=== PATIENT | male | born 1960 | race Caucasian/White ===

== ENCOUNTER 2017-09-14 08:32 | Day surgery (SDC) | payer OTHER ==
[~2017-09-14 08:32] MED LIST: Buffered Lidocaine 0.9% SYRIN* 5 ML/SYR SYRINGE INTRADERM ONE; Sodium Citrate/Citric Acid* 15 ML UDC PO ONE; ceFAZolin 2 GM PREMIX (*) 2 GM/50 ML BAG IVPB ONE
[2017-09-14] MEDS ORDERED: Sodium Citrate/Citric Acid* 15 ML UDC ONE (08:33)
[2017-09-14] MEDS ORDERED: Bupivacaine 0.25% SDV* 30 ML ONE (10:18)
[2017-09-14] MEDS ORDERED: Propofol* 10 MG/ML 20 ML BTL IV PUSH ONE (10:29)
[2017-09-14] MEDS ORDERED: Dexamethasone IV* 4 MG/ML 1 ML (4 MG) ONE (10:29)
[2017-09-14] MEDS ORDERED: Lidocaine 2% PF * 5 ML VIAL ONE (10:29)
[2017-09-14] MEDS ORDERED: Ketorolac INJ* 30 MG/ML 1 ML VIAL ONE ×2 (10:29→12:28)
[2017-09-14] MEDS ORDERED: Cisatracurium* 2 MG/ML MDV 5 ML ONE (10:29)
[2017-09-14] MEDS ORDERED: Midazolam* 1 MG/ML 2 ML VIAL (2 MG) ONE (10:30)
[2017-09-14] MEDS ORDERED: fentaNYL* 50 MCG/ML 2 ML VIAL (100 MCG VIAL) ONE ×2 (10:30→12:02)
[2017-09-14] MEDS ORDERED: Ondansetron INJ* 2 MG/ML VIAL IV PRN (11:06)
[2017-09-14] MEDS ORDERED: fentaNYL* 50 MCG/ML 2 ML VIAL (100 MCG VIAL) IV PRN (11:06)
[2017-09-14] MEDS ORDERED: oxyCODONE/Acetamin 5/325 MG* TAB PO PRN (12:55)
[2017-09-14] MEDS ORDERED: oxyCODONE/Acetamin 5/325 MG* TAB ONE (13:55)
[2017-09-14 16:05] VITALS: BP 128/70
--- NOTE | 2017-09-15 13:02 | OP ---
DATE OF OPERATION: 09/14/17 [facility] DATE OF : 64 SURGEON: Alberto Hanley MD. ELECTRICAL CONSTRUCTION PROJECT MANAGER: BRENDA Mackay. ANESTHESIOLOGIST: Dr. Rose. ANESTHESIA: General with local. PRE-OP DIAGNOSIS: Left inguinal hernia. POST-OP DIAGNOSIS: Left indirect inguinal hernia. OPERATIVE PROCEDURE: Extraperitoneal laparoscopic repair with a flat sheet ProGrip laparoscopic self-fixating mesh. ESTIMATED BLOOD LOSS: Minimal. WOUND CLASSIFICATION: 1. COMPLICATIONS: None. SPECIMENS: None. DRAINS: None. BRIEF HISTORY: Mr. Vitaliy Naqvi is a 57-year-old gentleman with a longstanding left inguinal hernia increasing size causing discomfort during physical activity is now to undergo an elective repair. DESCRIPTION OF PROCEDURE: Written and informed consent was obtained, the left groin was marked with indelible ink and preoperative antibiotics were administered. The patient was taken to the operating room, placed in the supine position. Sequential compression devices and a warming blanket were applied. General anesthesia was administered. A Abrams catheter was inserted. The abdomen and both groins were prepped and draped in the usual sterile fashion. A time-out verification was completed. Initially, a small transverse incision was made over the midline and just of the midline just below the umbilicus. This was carried down to the midline and the right rectus sheath was exposed and divided transversely exposing the underlying rectus muscle. The muscle was retracted laterally to expose the posterior sheath and the space inferiorly was then developed using initially a Daina and then finger digitally, in preparation for placement of the Spacemaker balloon. Next, the Spacemaker balloon was inserted into the space and carefully, but easily was passed down inferiorly to the pubic tubercle at the midline, which was confirmed by the tactile feel. Next, the 10-mm scope was inserted into the balloon and the balloon was inflated with almost 20 pumps of the inflator to develop the extraperitoneal space. The pressure was held in the right side of the abdomen in an attempt to more selectively insufflate and develop the left extraperitoneal space, which was mainly successful. Once this was done, the balloon was then removed and a 12-mm blunt port was inserted in the extraperitoneal space, was insufflated to 12 mmHg, and the patient was placed in Trendelenburg position. Two 5-mm ports were placed in the midline, the first about 3 fingerbreadths below the initial blunt port and the second one another 3 fingerbreadths below our first 5-mm port in the midline under direct vision. Dissection commenced initially by identifying the midline pubic tubercle and the timothy's ligament on the left side without difficulty. There was some adventitial tissue that was taken down bluntly to expose this. The anterior abdominal wall was identified and thus we were also able to identify the epigastric vessels as they entered the anterior abdominal wall in their usual position. More laterally I dissected and opened some adventitial tissue to identify the anterior abdominal wall on the left and we dissected out all the way out to the iliac crest. Once we identified these significant landmarks, I identified the peritoneal reflection laterally and we followed this from the lateral to medial direction into the internal ring, where there was an indirect peritoneal hernia sac in the expected position for an indirect inguinal hernia. I was able to separate this out from the surrounding cord structure using blunt dissection and some tension and thus I was able to reduce the hernia sac with care to prevent tearing the peritoneum. The spermatic cord and vas deferens were identified in their usual position and these were protected from injury throughout. Once this was reduced I was able to follow the peritoneal reflection medially down in the pelvis to be able to identify its location. There appeared to be no evidence of a direct inguinal hernia. Once this dissection was complete, a ProGrip laparoscopic self-fixating mesh was moistened with saline and its corners were trimmed slightly. This was rolled up in a cigar type configuration and passed into the space through the 12 mm blunt port. The mesh was then unrolled and was positioned carefully along the pubic tubercle and Timothy's ligament medially with generous coverage of both direct and indirect spaces especially onto the anterior abdominal wall. Care was also taken to identify the peritoneal reflection along the retroperitoneum and I assured myself this was proximal the inferior border of the mesh. The mesh extended almost out towards the iliac crest and had some generous overlap at the midline as well. Once this was complete, I was comfortable with its position. No tacks were placed. Hemostasis was assured. The extraperitoneal space was then desufflated under direct vision holding the mesh in position with 2 ports. Once this was complete, all ports were removed under direct vision of the camera. The anterior rectus sheath was closed with interrupted 0 Polysorb suture. The skin at all 3 incisions was approximated with subcuticular 4-0 Polysorb suture. Steri-Strips were applied. The patient tolerated the procedure well and was taken to the recovery room in stable condition. [id number]/[facility] #: [id number]
== END 2017-09-14 14:30 | disposition home or self-care (01) ==
LOC: OR 08:32
PROVIDERS: ATTEND Surgery
DX: K40.90 Unilateral inguinal hernia, without obstruction or gangrene, not specified as recurrent (principal); Z87.891 Personal history of nicotine dependence; I49.3 Ventricular premature depolarization; J44.9 Chronic obstructive pulmonary disease, unspecified; G25.81 Restless legs syndrome; G47.9 Sleep disorder, unspecified
CPT/HCPCS: A9270-GY; J0690; J1100; J1885; J2250; J2704; J3010

== ENCOUNTER 2018-07-12 18:19 | Emergency (ER) | payer OTHER ==
[2018-07-12 20:21] VITALS: BP 129/85
[2018-07-12] MEDS ORDERED: Lidocain 1% EPI 1:100,000 * 30 ML MDV INJ ONE (20:34)
--- NOTE | 2018-07-12 20:37 | UC ---
Laceration HPI - HPI Summary HPI Summary: A 58 y/o male presents to [facility] c/o laceration near right eyebrow. According to the patient, he was trimming with lopping sheers when the device broke off which led to the sheer hitting him in the head causing an impact cut. The incident occurred around 1800. He denies any bleeding from his eyes, ears, nose or throat. He did bandage the cut, but did not clean the area first. He additionally denies any headache or vision changes. States tdap utd as reviews at annual physical. little discomfort. No everyday medications. Patient took no medications today. SHx of no ETOH, no cigaretts, but had marijuana today post -accident. Pt medications reviewed this visit. - History Of Current Complaint Chief Complaint: UCLaceration Stated Complaint: FACIAL LAC Time Seen by Provider: 07/12/18 20:29 Hx Obtained From: Patient Laceration Location: Head - Above right eyebrow Mechanism Of Injury: Sharp Trauma Onset/Duration: Sudden Onset, Still Present Pain Intensity: 0 Pain Scale Used: 0-10 Numeric Aggravating Factors: Nothing - Allergies/Home Medications Allergies/Adverse Reactions: Allergies Allergy/AdvReac Type Severity Reaction Status Date / Time No Known Allergies Allergy Verified 07/12/18 20:21 PMH/Surg Hx/FS Hx/Imm Hx Endocrine History: Diabetes - NEGATIVE Cardiovascular History: Hypertension - NEGATIVE - Surgical History Surgical History: Yes Surgery Procedure, Year, and Place: HERNIA REPAIR 08/2017 - Family History Known Family History: Positive: Other - NON-CONTRIBUTORY. - Social History Occupation: Employed Full-time Lives: With Family Alcohol Use: None Substance Use Type: Marijuana Substance Use Comment - Amount & Last Used: daily Smoking Status (MU): Former Smoker Amount Used/How Often: 1/2 pack a day for 27 years When Did the Patient Quit Smoking/Using Tobacco: 2006 - Immunization History Most Recent Tetanus Shot: THINKS UTD Review of Systems Constitutional: Negative Skin: Other - Laceration above right eyebrow Eyes: Negative ENT: Negative Respiratory: Negative Cardiovascular: Negative Gastrointestinal: Negative Genitourinary: Negative Motor: Negative Neurovascular: Negative Musculoskeletal: Negative Neurological: Negative Psychological: Negative Is Patient Immunocompromised?: No All Other Systems Reviewed And Are Negative: Yes Physical Exam - Summary Physical Exam Summary: Vital Signs Reviewed: Yes A+Ox3, no distress Eyes: Conjunctiva Clear, DEBBIE, EOM intact and full, no crepitus of orbital ring ENT: Hearing grossly normal TM x 2 clear mmoist neck: supple Respiratory: Positive: No respiratory distress, No accessory muscle use Cardiovascular: skin color reflect adequate perfusion Musculoskeletal Exam: OROZCO x 4 without difficulty Neurological: Positive: Alert, ambulatory without difficulty Psychological: Positive: Normal Response To Family Skin: Positive: no rash, no ecchymosis, pt with 1.5cm laceration over right eyebrow (lateral wound) no active bleeding Triage Information Reviewed: Yes Vital Signs: Initial Vital Signs Temp 97 F 07/12/18 20:18 Pulse 60 07/12/18 20:18 Resp 16 07/12/18 20:18 BP 129/85 07/12/18 20:18 Pulse Ox 98 07/12/18 20:18 Vital Signs Reviewed: Yes Laceration Repair - Laceration Repair 1 Procedure Summary: verbal permission to treat time out completed with RN at bedside pt prepped in usual, sterile fashion copious irrigation with 250ml sterile saline under pressure pt tolerated well reviewed with pt wound care s/s infection return precautions Laceration Size After Repair: Length (cm) - 1.5 cm Modified For Repair: No Type Injection: Local Anesthesia Used: 1.0% Lido - 1.5ml Cleansing Completed Via Routine Prep: Yes Irrigation With Pressure Irrigation Device: No Closure Material: Sutures - 2 sutures, 5-0 prolene Closure Method: Single Layer Suture Of: Skin Suture Type: Prolene - 5-0 Laceration Course/Dx - Course/Dx Course Of Treatment: Pt with 1.5 cm laceration right eyelid s/p stuck with pruning tool. No LOC. Not immunocompromised. no eye involvement tdap utd pt without other injures. wound closed. reviewed s/s infection. suture removal. pt comfortable and in agreement with plan - Differential Dx - Laceration/Wound Provider Diagnoses: facial laceration Discharge - Sign-Out/Discharge Documenting (check all that apply): Patient Departure - DISCHARGE All imaging exams completed and their final reports reviewed: No Studies - Discharge Plan Condition: Stable Disposition: HOME Patient Education Materials: Facial Laceration (ED) Referrals: Ese Clemons MD [Primary Care Provider] - (5days for suture removal ) Additional Instructions: - your stitches should come out in 5 days - you can return here, go to your Doctor or any urgent care center - okay to alternate ibuprofin (advil, motrin) and tylenol every 3hours as needed for pain -Anticipate increased discomfort over the next several hours as the numbing medication wears off -Keep your wound clean and dry - no soaking for 24 hours. Then, okay for wound to get wet - pat dry, don't rub -apply a thin layer of antibiotic ointment 2-3 times a day - when you have a cut, you will have a scar. To minimize scar formation - keep your wound clean - monitor for signs of infection - reddness, red streaking, odor, green drainage -Once sutures out - keep your wound out of direct sun (wear a hat or sun screen ) - it may take up to 9 months for your scar to reach its final state - Contact your doctor or return here with questions or concerns - Billing Disposition and Condition Condition: STABLE Disposition: Home - Attestation Statements Document Initiated by Janina: Yes Documenting Scribe: Jan Brown Provider For Whom Janina is Documenting (Include Credential): Denita Hunter MD Scribe Attestation: Jan Wasserman, scribed for Denita Hunter MD on 07/14/18 at 1058. Scribe Documentation Reviewed: Yes Provider Attestation: The documentation as recorded by the Jan mcneal accurately reflects the service I personally performed and the decisions made by me, Denita Hunter MD
[2018-07-12] MEDS ORDERED: Lidocaine 2% PF * 5 ML VIAL INJ ONE (20:42)
== END 2018-07-12 21:03 | disposition home or self-care (01) ==
LOC: UCEAST 18:19
CPT/HCPCS: 12011; 99211; G0463

== ENCOUNTER 2018-07-17 10:07 | Emergency (ER) | payer OTHER ==
[2018-07-17 10:13] VITALS: BP 130/81
--- NOTE | 2018-07-17 10:35 | UC ---
HPI Wound/Suture Re-check - HPI Summary HPI Summary: Patient had 2 sutures placed to his right eyebrow 5 days ago. Is here for suture removal. Laceration is healing well. Patient denies any drainage or discomfort. No fever. - History Of Current Complaint Chief Complaint: ROBBINkin Stated Complaint: STITCH REMOVAL Time Seen by Provider: 07/17/18 10:23 Hx Obtained From: Patient Severity: Mild Pain Intensity: 0 Pain Scale Used: 0-10 Numeric - Allergies/Home Medications Allergies/Adverse Reactions: Allergies Allergy/AdvReac Type Severity Reaction Status Date / Time No Known Allergies Allergy Verified 07/17/18 10:13 PMH/Surg Hx/FS Hx/Imm Hx Previously Healthy: Yes - Surgical History Surgical History: Yes Surgery Procedure, Year, and Place: HERNIA REPAIR 08/2017 - Family History Known Family History: Positive: Other - NON-CONTRIBUTORY. Negative: Hypertension - Social History Alcohol Use: None Substance Use Type: Marijuana Substance Use Comment - Amount & Last Used: daily Smoking Status (MU): Former Smoker Amount Used/How Often: 1/2 pack a day for 27 years When Did the Patient Quit Smoking/Using Tobacco: 2006 - Immunization History Most Recent Tetanus Shot: THINKS UTD Review of Systems Constitutional: Negative Skin: Other - HEALED LACERATION RIGHT EYE BROW Respiratory: Negative Cardiovascular: Negative Gastrointestinal: Negative All Other Systems Reviewed And Are Negative: Yes Physical Exam Triage Information Reviewed: Yes Appearance: Well-Appearing, No Pain Distress, Well-Nourished Vital Signs: Initial Vital Signs Temp 97.5 F 07/17/18 10:11 Pulse 67 07/17/18 10:11 Resp 18 07/17/18 10:11 BP 130/81 07/17/18 10:11 Pulse Ox 98 07/17/18 10:11 Vital Signs Reviewed: Yes Eyes: Positive: Conjunctiva Clear ENT: Positive: Hearing grossly normal Neck: Positive: Supple Respiratory: Positive: No respiratory distress, No accessory muscle use Cardiovascular: Positive: Pulses Normal Abdomen Description: Positive: Soft Musculoskeletal: Positive: No Edema Neurological: Positive: Alert Psychological: Positive: Age Appropriate Behavior Skin: Positive: Other - LACERATION RIGHT EYEBROW WELL HEALED WITH [address] Course/Dx - Course Course Of Treatment: 2 SUTURES REMOVED WITHOUT DIFFICULTY. - Differential Dx - Laceration/Wound Provider Diagnoses: SUTURE REMOVAL Discharge - Sign-Out/Discharge Documenting (check all that apply): Patient Departure All imaging exams completed and their final reports reviewed: No Studies - Discharge Plan Condition: Stable Disposition: HOME Patient Education Materials: Stitches Removal (ED) Referrals: Ese Clemons MD [Primary Care Provider] - If Needed Additional Instructions: YOUR SUTURES WERE REMOVED TODAY WITHOUT DIFFICULTY. YOUR WOUND IS WELL HEALED. SEEK FOLLOW-UP IF YOU DEVELOP SPREADING REDNESS OF THE SKIN, PURULENT DRAINAGE, FEVER, INCREASED PAIN OR ANY OTHER CONCERNING SYMPTOMS. - Billing Disposition and Condition Condition: STABLE Disposition: Home
== END 2018-07-17 10:35 | disposition home or self-care (01) ==
LOC: UCEAST 10:07
DX: S01.111D Laceration without foreign body of right eyelid and periocular area, subsequent encounter (principal); X58.XXXD Exposure to other specified factors, subsequent encounter; Y92.9 Unspecified place or not applicable